=== PATIENT | male | born 1960 | race Caucasian/White ===

== ENCOUNTER 2019-11-18 09:38 | Inpatient (IN) | payer OTHER ==
[~2019-11-18] VITALS: Ht 177.8 cm; Wt 93.4 kg
--- NOTE | ~2019-11-18 | EKG ---
[place] [address] ELECTROCARDIOGRAM REPORT Name: MELISSA BRUNO Lauren Room: [facility]#: [id number] Admission: 11/18/19 Attend Phys: Discharge: Date of : 60 Date of Service: 11/18/19 0949 Report #: [id number] THIS REPORT FOR: cc: Es Frausto Linda J. 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
--- NOTE | ~2019-11-18 | EKG ---
[place] [address] ELECTROCARDIOGRAM REPORT Name: MELISSA BRUNO Room: [address] ADM IN .R.#: [id number] Admission: 11/18/19 Attend Phys: Bessy Allen, Discharge: Date of : 60 Date of Service: 11/19/19 1125 Report #: [id number] THIS REPORT FOR: cc: Es Frausto Linda J. 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 : 1960 Requested By: Melissa Zamudio Order Number: [id number] Reading MD: Measurements Intervals [place] Rate: 88 P: 6 NV: 145 QRS: 0 QRSD: 108 T: 68 QT: 406 QTc: 492 Interpretive Statements Sinus rhythm Atrial premature complex Probable left atrial enlargement Inferior infarct, old Abnormal lateral Q waves Anterior infarct, old Compared to ECG 11/18/2019 09:49:30 Atrial premature complex(es) now present Sinus tachycardia no longer present Myocardial infarct finding still present [email or web address] By: 1125 1125 Epiphany MD Oc /KELLIE
--- NOTE | ~2019-11-18 | EKG ---
[place] [address] ELECTROCARDIOGRAM REPORT Name: MELISSA BRUNO Room: [address] ADM IN .R.#: [id number] Admission: 11/18/19 Attend Phys: Bessy Allen, Discharge: Date of : 60 Date of Service: 11/20/19 0439 Report #: [id number] THIS REPORT FOR: cc: Es Frausto Linda J. 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
[2019-11-18 09:46] VITALS: BP 125/93; BP 131/101
[2019-11-18] MEDS ORDERED: ASA81BEC PO (09:53)
[2019-11-18] MEDS ORDERED: ADVIL LIQUI-GE200 MG PO (09:53)
[2019-11-18] MEDS ORDERED: MELATONIN3 M2 PO (09:53)
[2019-11-18 10:09] LABS: ABSOLUTE BASOPHILS 0.1 thou/uL (0.0-0.2); ABSOLUTE EOSINOPHILS 0.2 thou/uL (0.0-0.7); ABSOLUTE LYMPHOCYTES 2.6 thou/uL (0.8-5.3); ABSOLUTE NEUTROPHILS 6.4 thou/uL (1.6-8.1); BASOPHILS 0.7 %; EOSINOPHILS 1.6 %; HEMATOCRIT 48.1 % (42.0-52.0); HEMOGLOBIN 16.2 gm/dL (14.0-18.0); LYMPHOCYTES 25.2 %; MCH 30.1 pg (26.0-34.0); MCHC 33.7 g/dL (28.0-37.0); MCV 89.2 fL (80.0-100.0); MONOCYTES 9.4 %; MPV 8.5 fl. (7.2-11.1); NUCLEATED RBCS 0 /100WBC; PLATELET COUNT* 268 thou/uL (150-400); POLYS 63.1 %; RBC 5.39 mil/uL (4.50-6.00); RDW-CV 15.3 % (10.5-14.5); WBC 10.2 thou/uL (4.0-11.0)
[2019-11-18 10:23] LABS: APTT 23.9 Seconds (25.0-31.3); INR 1.2; PROTIME 12.6 Seconds (9.20-11.50)
[2019-11-18 10:24] LABS: CREATININE 1.1 mg/dL (0.6-1.3); POTASSIUM 4.6 mmol/L (3.5-5.1)
[2019-11-18 10:27] LABS: ALBUMIN 3.4 g/dL (3.4-5.0); TOTAL BILIRUBIN 0.8 mg/dL (<0.1-1.0); TOTAL PROTEIN 6.6 g/dL (6.4-8.2)
[2019-11-18 14:41] LABS: BE -4.9 mmol/L (-2 to +3); PCO2 28.6 mmHg (35.0-45.0); PO2 95.8 mmHg (75.0-100.0); pH 7.416 (7.340-7.450)
[2019-11-18 16:05] VITALS: BP 127/93
[2019-11-18 16:15] VITALS: BP 125/91
--- NOTE | 2019-11-18 16:35 | 2DMMODE ---
[place] [address] 2 D/M-MODE ECHOCARDIOGRAM Name: MELISSA BRUNO Room: [address] IN [facility]#: [id number] Admission: 11/18/19 Attend Phys: Bessy Allen, Discharge: Date of : 60 Date of Service: 11/18/19 1635 Report #: [id number] THIS REPORT FOR: cc: Es Frausto,Melissa Braden MD [facility] ~ THIS REPORT FOR: //name// APPROVED REPORT Study performed: 11/18/2019 15:19:27 EXAM: Comprehensive 2D, Doppler, and color-flow Echocardiogram Patient Location: In-Patient Room #: ER Status: routine BSA: 2.16 HR: 116 bpm BP: 122/90 mmHg Rhythm: NSR Other Information Study Quality: Good Indications Congestive Heart Failure 2D Dimensions IVSd: 10.40 (7-11mm) LVOT Diam: 23.07 (18-24mm) LVDd: 69.00 mm PWd: 10.20 (7-11mm) Ascending Ao: 39.04 (22-36mm) LVDs: 65.74 (25-40mm) Aortic Root: 39.05 mm Volumes Left Atrial Volume (Systole) LA ESV Index: 53.40 mL/m2 Aortic Valve AoV Peak Yoshi.: 1.00 m/s AO Peak Gr.: 3.98 mmHg LVOT Max P.49 mmHg AO Mean Gr.: 2.46 mmHg LVOT Mean P.94 mmHg LVOT Max V: 0.61 m/s AO V2 VTI: 13.63 cm LVOT Mean V: 0.47 m/[place] [address] 2 D/M-MODE ECHOCARDIOGRAM Name: MELISSA BRUNO Room: [address] IN [facility]#: [id number] Admission: 11/18/19 Attend Phys: Bessy Allen, Discharge: Date of : 60 Date of Service: 11/18/19 1635 Report #: [id number] BENITEZ (VTI): 2.56 cm2 LVOT V1 VTI: 8.35 cm TDI Medial E' Yoshi.: 0.08 m/s Lateral E' Yoshi.: 0.13 m/s Pulmonary Valve PV Peak Yoshi.: 0.64 m/s PV Peak Gr.: 1.64 mmHg Tricuspid Valve RAP Estimate: 5.00 mmHg TR Peak Gr.: 33.28 mmHg RVSP: 38.00 mmHg PA Pressure: 38.00 mmHg Left Ventricle Left ventricle is moderately dilated. There is global hypokinesis of the left ventricle. There is normal left ventricular wall thickness. Left ventricular systolic function is severely decreased. LVEF is 15-20%. Right Ventricle Right ventricle is dilated. The right ventricular systolic function is normal. Atria Left atrium is severely dilated. Right atrium is dilated. Aortic Valve The aortic valve is normal in structure. Trace aortic regurgitation. There is no aortic valvular stenosis. Mitral Valve The mitral valve is normal in structure. Moderate mitral regurgitation. No evidence of mitral valve stenosis. Tricuspid Valve The tricuspid valve is normal in structure. There is mild tricuspid valve regurgitation noted. estimated pa pressure 40 mm Hg Pulmonic Valve The pulmonary valve is normal in structure. Mild pulmonic regurgitation. Great Vessels The aortic root is normal in size. IVC is normal in size and collapses >50% [place] [address] 2 D/M-MODE ECHOCARDIOGRAM Name: MELISSA BRUNO Room: [address]#: [id number] Admission: 11/18/19 Attend Phys: Bessy Allen, Discharge: Date of : 60 Date of Service: 11/18/19 1635 Report #: [id number] Pericardium There is no pericardial effusion. <Conclusion> Left ventricle is moderately dilated. LVEF is 15-20%. Left atrium is severely dilated. Moderate mitral regurgitation. There is mild tricuspid valve regurgitation noted. estimated pa pressure 40 mm Hg <ELECTRONICALLY SIGNED> By: Melissa Zamudio MD, FACC 11/18/19 1635 1635 34 Melissa Zamudio MD, FACC /INF
[2019-11-18 20:15] VITALS: BP 118/82
[2019-11-18 23:43] LABS: INFLUENZA A ANTIGEN Negative (Negative); INFLUENZA B ANTIGEN Negative (Negative)
[2019-11-19] VITALS (11 sets, daily range): BP systolic 86–133; BP diastolic 66–82
[2019-11-19 07:10] LABS: GLYCOHEMOGLOBIN (HGB A1C) 6.1 % (4.8-5.6)
[2019-11-19 07:34] LABS: ANION GAP 12 mmol/L (7-16); BUN 20 mg/dL (7-18); CALCIUM 8.3 mg/dL (8.5-10.1); CHLORIDE 102 mmol/L (98-107); CHOLESTEROL 133 mg/dL (<200); CO2 21 mmol/L (21-32); GLUCOSE 138 mg/dL (70-99); HDL CHOLESTEROL 41 mg/dL (>40); LDL CHOLESTEROL 82 mg/dL (<100); POTASSIUM 4.1 mmol/L (3.5-5.1); SERUM ASSESSMENT Clear; SODIUM 135 mmol/L (136-145); TC:HDL 3.2 Ratio (Not establshd); TRIGLYCERIDE 53 mg/dL (<150); VLDL 11 mg/dL (<40)
--- NOTE | 2019-11-19 17:15 | CARD ---
[address] [address] CARDIAC CATH REPORT Name: MELISSA BRUNO Room: [address] IN [facility]#: [id number] Admission: 11/18/19 Attend Phys: Bessy Allen MD Discharge: Date of : 60 Report #: [id number] THIS REPORT FOR: //name// cc: Es Frausto Linda J. DO ~ THIS REPORT FOR: //name// APPROVED REPORT Study performed: 11/19/2019 08:56:27 Patient Details Patient Status: In-Patient Room #: 230 The patient is a 59 year-old male Event Personnel Melissa Zamudio In School Suspension Aide, Fozia Schroeder RN [employer] Specialist, Ashley Jones RTR Scrub, Zahra Jackson RTR Monitor Procedures Performed Art Access - R radial artery , Left Heart Cath w/or w/o Coronaries , ANNMARIE Place w/wo Plasty Single CIRC and attempted PTCA of the distal LAD Indication Abnormal ECG, Dyspnea, Cardiomyopathy Risk Factors Hypercholesterolemia Previous Procedures/Diagnoses Previous CO Admission/Lab Medications/Medications given during procedure Glycoprotein IllbIlla Inhibitors, Heparin Unfract., Oxygen Nasal cannula 2 l per min, Lidocaine Subcut 6 ml, Nitroglycerin IA 400 mcg, Verapamil IA 5 mg, Heparin IV bolus 9000 units, Aggrastat IV bolus 10 ml, Plavix PO 600 mg Procedure Narrative The patient was brought electively to the Cardiac Catheterization Laboratory and was prepped and draped in a sterile manner. The right wrist area was infiltrated with 2% [place] [address] CARDIAC CATH REPORT Name: MELISSA BRUNO Room: [address]#: [id number] Admission: 11/18/19 Attend Phys: Bessy Allen MD Discharge: Date of : 60 Report #: [id number] A 6F Slender Glidesheath sheath was inserted into the right radial artery. Coronary angiography was performed using coronary diagnostic catheters. The right coronary system was accessed and visualized with a 6F JR4 catheter. The left coronary system was accessed and visualized with a 6F JL4 catheter. The left ventricle was accessed and visualized with a 6F Pigtail catheter. Left ventricular/Aortic Valve gradient assessed via catheter pullback. Left ventriculogram was performed in [place] projection. Closure device was deployed with a 6 Fr Vasc-Band Reg 24cm. The patient tolerated the procedure well and there were no complications associated with the procedure. There was no hematoma. Intraoperative Conscious Sedation Sedation start time: 09:36 Case end Time: 10:43 Fentanyl 25 mcg Versed 2 mg Fluoro Time: 16.5 minutes Dose: DAP 224195 cGycm2 3249 mGy Contrast Type and Amount: Visipaque 315 ml Coronary Angiography The patient's coronary anatomy is right dominant. Diagnostic Cath Left Main 0% stenosis LAD 30% proximal stenosis. Distal LAD was occluded after the 3rd diagonal branch with faint filling by bridging collaterals Diagonal 2 small vessel with 90% ostial stenosis Circumflex 99% mid stenosis OM1 40% proximal stenosis Right Coronary 30% proximal stenosis R PDA 50% ostial stenosis RPLV 50% mid stenosis Left Ventriculography The left ventricular ejection fraction is estimated to be 15-20%. Left ventricular wall motion abnormalities are present. There is no mitral insufficiency. Akinesis noted of the distal anteroapical wall with filling defect in the apex suggesting an old thrombus. Severe hypokinesis noted of the inferior wall. Hemodynamics The aortic pressure is 83/60 mmHg with a mean of 70 mmHg. The left ventricular pressure is 90/19 mmHg with a mean of mmHg. The left ventricular end diastolic pressure is 35 mmHg. [place] [address] CARDIAC CATH REPORT Name: MELISSA BRUNO Room: [address]#: [id number] Admission: 11/18/19 Attend Phys: Bessy Allen MD Discharge: Date of : 60 Report #: [id number] across the aortic valve upon pullback. Pullback from the left ventricle to the aorta revealed no gradient across the aortic valve. PCI Technique Lesion Anticoagulation was achieved with Heparin. bolus of iv aggrastat given Percutaneous coronary intervention was performed on the mid circumflex artery segment. The lesion stenosis prior to intervention was 90% with MARIBELL 3 flow. A 6F XB LAD 3.5 Guide Catheter was used to engage the left main ostium. A BMW 190cm Interventional Guidewire was used to cross the lesion. BALLOON DILATION A Balloon catheter Trek RX 2.5 X 8 was inserted and inflated up to 12.00atm for 23seconds. Repeat angiography revealed the following post-dilatation results: 50% stenosis. Additional Inflation: 18.00atm for 50seconds. Additional Inflation: 18.00atm for 13seconds. STENT DEPLOYMENT A drug-eluting stent Russ RX Stent 3.5X22mm was inserted and inflated up to 11.00atm for 17seconds. Repeat angiography revealed the following post-stent deployment results: 0% stenosis. Additional Inflation: 11.00atm for 11seconds. Additional Inflation: 13.00atm for 16seconds. Final angiography reveals 0 % stenosis with MARIBELL 3 flow. PCI Technique Lesion 2 Percutaneous Coronary Intervention was performed on the distal left anterior descending artery segment. Percutaneous coronary intervention was performed on the distal left anterior descending artery segment. The lesion stenosis prior to intervention was 100% with MARIBELL 0 flow. A xblad3.5 Guide Catheter was used to engage the lm ostium. A bmw Interventional Guidewire was used to cross the lesion. Balloon Dilation Unable to cross stenosis with neither the BMW, prowater flex, nor the choice PT extra support guide wire suggesting that this represented a chronic occlusion. Final angiography reveals 100 % stenosis with MARIBELL 0 flow. Conclusion 1. 90% stenosis of the mid circumflex artery [facility] [address] [place] [address] CARDIAC CATH REPORT Name: MELISSA BRUNO Room: [address] IN M.R.#: [id number] Admission: 11/18/19 Attend Phys: Bessy Allen MD Discharge: Date of : 60 Report #: [id number] 2. chronic occlusion of the distal lad 3. successful placement of a drug eluting stent in the mid circumflex artery 4. LVEF less than 20% Recommendations consider ICD placement Medications Administered Clopidogrel <ELECTRONICALLY SIGNED> By: Melissa Zamudio MD, FACC 11/19/19 1713 12 1713Dgaby Zamudio MD, FACC /INF
[2019-11-20] VITALS: BP 122/78
[2019-11-20 04:00] VITALS: BP 115/77
[2019-11-20 04:39] LABS: HEMATOCRIT 42.1 % (42.0-52.0); MCH 29.4 pg (26.0-34.0); MCHC 33.5 g/dL (28.0-37.0); MCV 87.9 fL (80.0-100.0); MPV 8.8 fl. (7.2-11.1); RBC 4.79 mil/uL (4.50-6.00); RDW-CV 14.9 % (10.5-14.5); WBC 11.3 thou/uL (4.0-11.0)
[2019-11-20 04:47] LABS: HEMOGLOBIN 14.1 gm/dL (14.0-18.0)
[2019-11-20 05:02] LABS: CALCIUM 8.4 mg/dL (8.5-10.1); CREATININE 1.1 mg/dL (0.6-1.3); POTASSIUM 3.9 mmol/L (3.5-5.1)
[2019-11-20 05:05] LABS: TROPONIN-I LEVEL 5.36 ng/mL (<0.06)
[2019-11-20] MEDS ORDERED: LIPITOR 20 MG T20 M1 PO (09:23)
[2019-11-20] MEDS ORDERED: CARVEDILOL12.5 MG PO (09:25)
[2019-11-20] MEDS ORDERED: PLAVIX 75 MG TA75 MG PO (09:30)
[2019-11-20] MEDS ORDERED: LASIX 40 MG TAB40 MG PO (09:31)
[2019-11-20] MEDS ORDERED: SPIRONOLACTONE25 MG PO (09:34)
--- NOTE | 2019-11-20 14:04 | CON ---
[address] [address] CONSULTATION Name: YESSENIAGALENMELISSA Aguilar Room: [address] IN [facility]#: [id number] Admission: 11/18/19 Attend Phys: Bessy Allen MD Discharge: Date of : 60 Report #: [id number] THIS REPORT FOR: //name// cc: Es Frausto Linda J. DO THIS REPORT FOR: //name// CC: Bessy Payan DATE OF SERVICE: 11/18/2019 CARDIOLOGY CONSULTATION HISTORY OF PRESENT ILLNESS: The patient is a 59-year-old white male who I was asked to see in the Emergency Room today after he complained of being short of breath. The patient apparently had a previous myocardial infarction, but never required a stent. He was given medications in the past, but stopped taking them. Recently, he has been coughing and had lower extremity edema. He was given antibiotics. However, the shortness of breath worsened and so he came to the Emergency Room today to be admitted. He denies any chest pain, arm pain. He has been waking up at night short of breath. He notes occasional fast heartbeat, but no syncope. PAST MEDICAL HISTORY: He has had no surgical procedures. MEDICATIONS: His only medication includes aspirin 81 mg a day. ALLERGIES: He has no known drug allergies. FAMILY HISTORY: Negative for heart disease. SOCIAL HISTORY: He is . He and his live here in [place]. 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 No smoking. Rarely drinks alcohol. He does exercise on a regular basis. REVIEW OF SYSTEMS: No history of stroke, asthma, peptic ulcer disease, liver disease, kidney disease, cancer, psychiatric illness, or chronic skin condition. PHYSICAL EXAMINATION: GENERAL: Revealed a middle-aged male, who appeared in mild respiratory distress. VITAL SIGNS: He had a blood pressure of 120/80, pulse is 100. He is afebrile. HEENT: He was anicteric. Conjunctivae pink. Mucous membranes are moist. NECK: Veins nondistended. No carotid bruits. CHEST: Revealed crackles in both lung cuenca. CARDIOVASCULAR: Regular, tachycardia. No significant murmur. ABDOMEN: Soft. EXTREMITIES: Had no edema. SKIN: Warm and dry. NEUROLOGIC: Nonfocal. LYMPHATIC: No adenopathy. MUSCULOSKELETAL: No joint effusion. His workup in the Emergency Room, he had a portable chest x-ray that showed cardiomegaly, some atelectasis, small effusions. He actually had a CT scan of the chest using a PE protocol that showed no embolus, small effusions, mild edema, some atelectasis, coronary artery calcification. He had a CT scan of the abdomen and pelvis that showed small effusions, some ascites. His lab work today, sodium 138, potassium 4.6, and creatinine 1.1. Liver function studies were normal. Troponin is 0.16. BNP 5157. His white blood cell count 10.2, hemoglobin 16.2. His ECG showed a sinus rhythm, evidence of previous inferior infarction. IMPRESSION AND RECOMMENDATIONS: 1. Zzmuv-kj-mhdwdkw systolic heart failure. Recommend Lasix. 2. Recent cough. Possible bronchitis. 3. Previous myocardial infarction. Apparently requires no stents. <ELECTRONICALLY SIGNED> By: Melissa Zamudio MD, FACC 11/20/19 1404 1451 [id number] Zamudio MD, FACC /nt
== END 2019-11-20 13:30 | disposition home or self-care (01) | DRG 246 ==
LOC: M.ERS 09:38 → M.TBA-ER 11:07 → M.2W 11:07
PROVIDERS: Family Medicine; Internal Medicine Cardiovascular Disease; ADMIT Internal Medicine
DX: I21.4 Non-ST elevation (NSTEMI) myocardial infarction (principal); I50.23 Acute on chronic systolic (congestive) heart failure; J15.6 Pneumonia due to other Gram-negative bacteria; J96.00 Acute respiratory failure, unspecified whether with hypoxia or hypercapnia; R18.8 Other ascites; I42.9 Cardiomyopathy, unspecified; I11.0 Hypertensive heart disease with heart failure; I25.10 Atherosclerotic heart disease of native coronary artery without angina pectoris; E74.39 Other disorders of intestinal carbohydrate absorption; I25.5 Ischemic cardiomyopathy; I25.2 Old myocardial infarction; Z88.6 Allergy status to analgesic agent; Z88.8 Allergy status to other drugs, medicaments and biological substances

== ENCOUNTER → 2019-12-04 | Outpatient (CLI) | payer OTHER ==
[~2019-12-04] MED LIST: ADVIL LIQUI-GE200 MG PO; ASA81BEC PO; CARVEDILOL12.5 MG PO; LASIX 40 MG TAB40 MG PO; LIPITOR 20 MG T20 M1 PO; MELATONIN3 M2 PO; PLAVIX 75 MG TA75 MG PO; SPIRONOLACTONE25 MG PO
[2019-12-04 08:17] LABS: ALBUMIN 3.4 g/dL (3.4-5.0); CALCIUM 8.7 mg/dL (8.5-10.1); CREATININE 1.1 mg/dL (0.6-1.3); POTASSIUM 4.1 mmol/L (3.5-5.1); TOTAL BILIRUBIN 0.7 mg/dL (<0.1-1.0); TOTAL PROTEIN 6.8 g/dL (6.4-8.2)
== END ==
LOC: M.LAB 07:38
PROVIDERS: Registered Nurse
DX: I11.0 Hypertensive heart disease with heart failure (principal); I50.22 Chronic systolic (congestive) heart failure

== ENCOUNTER → 2019-12-19 | Outpatient (CLI) | payer OTHER ==
[2019-12-19 10:33] LABS: ANION GAP 7 mmol/L (7-16); BUN 13 mg/dL (7-18); CALCIUM 8.4 mg/dL (8.5-10.1); CHLORIDE 104 mmol/L (98-107); CHOLESTEROL 106 mg/dL (<200); CO2 27 mmol/L (21-32); GLUCOSE 106 mg/dL (70-99); HDL CHOLESTEROL 38 mg/dL (>40); LDL CHOLESTEROL 60 mg/dL (<100); NT-PRO BRAIN NAT PEPTIDE 2413 pg/mL (<300); POTASSIUM 4.4 mmol/L (3.5-5.1); SODIUM 138 mmol/L (136-145); TC:HDL 2.8 Ratio (Not establshd); TRIGLYCERIDE 43 mg/dL (<150); VLDL 9 mg/dL (<40)
[2019-12-19 10:38] LABS: SERUM ASSESSMENT Clear
[2019-12-20 02:07] LABS: GLYCOHEMOGLOBIN (HGB A1C) 6.4 % (4.8-5.6)
== END ==
LOC: M.LAB 09:44
PROVIDERS: Nurse Practitioner Family
DX: I11.0 Hypertensive heart disease with heart failure (principal); I50.22 Chronic systolic (congestive) heart failure; E78.2 Mixed hyperlipidemia

== ENCOUNTER → 2020-03-11 | Outpatient (CLI) | payer OTHER ==
[~2020-03-11] MED LIST changes: +KEFLEX500 M2 PO
== END ==
LOC: M.LAB 10:23
PROVIDERS: ATTEND Internal Medicine Cardiovascular Disease
DX: Z01.818 Encounter for other preprocedural examination (principal)

== ENCOUNTER → 2020-03-16 | Outpatient (CLI) | payer OTHER ==
[~2020-03-16] VITALS: Ht 177.8 cm; Wt 81.8 kg
[2020-03-16 09:54] VITALS: BP 113/74
[2020-03-16 09:59] LABS: HEMOGLOBIN 15.2 gm/dL (14.0-18.0); MCH 30.7 pg (26.0-34.0); MCHC 34.5 g/dL (28.0-37.0); MCV 88.9 fL (80.0-100.0); MPV 8.9 fl. (7.2-11.1); RBC 4.95 mil/uL (4.50-6.00); RDW-CV 15.6 % (10.5-14.5); WBC 7.3 thou/uL (4.0-11.0)
[2020-03-16 10:23] LABS: APTT 25.9 Seconds (25.0-31.3); CALCIUM 8.6 mg/dL (8.5-10.1); CREATININE 0.9 mg/dL (0.6-1.3); INR 1.2; PROTIME 11.8 Seconds (9.20-11.50)
[2020-03-16 10:27] LABS: ALBUMIN 3.9 g/dL (3.4-5.0); TOTAL BILIRUBIN 0.6 mg/dL (<0.1-1.0); TOTAL PROTEIN 7.3 g/dL (6.4-8.2)
[2020-03-16 12:16] VITALS: BP 104/76
[2020-03-16 12:32] VITALS: BP 103/72
--- NOTE | 2020-03-16 13:33 | EKG ---
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1960 Requested By: Gonzalo Modi Order Number: [id number] Reading MD: Melissa Zamudio Measurements Intervals [place] Rate: 66 P: 27 [place]: 177 QRS: -47 QRSD: 115 T: QT: 442 QTc: 464 Interpretive Statements Sinus rhythm Left atrial enlargement Nonspecific IVCD with LAD Inferior infarct, old Abnormal lateral Q waves Anterior infarct, old Compared to ECG 11/20/2019 04:39:26 Atrial abnormality now present Prolonged QT interval no longer present Myocardial infarct finding still present Electronically Signed On 03-16-2020 13:31:42 CDT by Melissa Zamudio [email or web address] <ELECTRONICALLY SIGNED> By: Melissa Zamudio MD, FAC 03/16/20 1331 1320 1320 Melissa Zamudio MD, FAC /EPI
--- NOTE | 2020-03-16 13:57 | CARD ---
[address] [address] CARDIAC CATH REPORT Name: MELISSA BRUNO Room: [facility]#: [id number] Admission: 03/16/20 Attend Phys: Gonzalo Modi MD Discharge: Date of : 60 Report #: [id number] THIS REPORT FOR: //name// cc: Teresa Hastings NP, Elizabeth NP ~ APPROVED REPORT Study performed: 03/16/2020 10:16:09 Patient Status: Out-Patient Room #: Event Personnel: Gonzalo Modi Seismograph Chief, Zahra Jackson RTR Scrub, Pacheco Manrique RN Transcripter, Jovanny Last ADVERTISING SALES ASSOCIATE Monitor Exam: Single Lead ICD Implant Indications: Primary prevention in the setting of ischemic cardiomyopathy. The patient is a 60 year-old male with a history of Ischemic cardiomyopathy with an ejection fraction of 15 to 20%. Patient Info Last EF%: 15 to 20% Date: February 2020 NYHA Heart Class: II Conscious Sedation Start time: 11:12 End Time: 11:54 Fentanyl 25 mcg Versed 1 mg 10.7 minutes fluoro, 744.82 DAP, 21.9 mGy. Implanted Devices: Medtronic ICDVR [id number] Primo MRI compatible, model number WFRX5N0, serial number [id number] single-chamber pulse generator. [employer] model number [id number], serial number [id number] pacing ICD lead. Procedure The patient underwent informed consent. We discussed the details of the procedure including the risks, which include, but not limited to bleeding, infection, vascular damage, cardiac perforation, and pneumothorax. He understood these risks and was willing to proceed. As such, he was brought to the EP/Cardiac Catheterization laboratory in a fasting and sedated state and prepped and draped in a sterile fashion, received IV antibiotics prior to initiation of the procedure and a venogram was performed showing patency of the left axillary vein. The patient underwent conscious sedation, [place] [address] CARDIAC CATH REPORT Name: MELISSA BRUNO Room: [facility]#: [id number] Admission: 03/16/20 Attend Phys: Gonzalo Modi MD Discharge: Date of : 60 Report #: [id number] complications. The patient was brought to the EP/Cardiac Catheterization laboratory and the left chest and shoulder were prepped and draped in a sterile manner. During this case, Fluoroscopy and left subclavian venogram were used for imaging. The left subclavian region was infiltrated with 2% Lidocaine with Epinephrine subcutaneous anesthesia. A transverse incision was made in the left upper chest cavity. The subcutaneous pocket was formed via blunt dissection. Percutaneous venous access was achieved and an introducer sheath was inserted into the left Subclavian vein. The ventricular lead was interrogated and The pacing ICD lead was then advanced to a secure position within the RV apex and actively fixed. Thresholds were checked and deemed to be satisfactory. Adequate sensing was assured. There was no diaphragmatic stimulation with maximum output pacing. The ventricular lead was secured using 0 silk suture. The subcutaneous pocket was irrigated with Ancef antibiotic solution. The ventricular lead was attached to the appropriate receptacle on the ICD generator and set screw firmly tightened to insure adequate contact and stability. The lead and ICD generator were placed into the subcutaneous pocket. The deep tissues were closed with interrupted stitches of 2-0 Vicryl. The skin incision was then closed with a single subcuticular stitch of 4-0 Vicryl. Several Steri-Strips were placed across the incision. A sterile Telfa dressing was then covered with a Tegaderm. Sharp and sponge counts were confirmed to be correct. Electrode Parameters R Wave: 8.0 mV Ventricular Threshold: 0.6 V at 0.50 ms Ventricular Resistance: 539 ohms Complications The patient tolerated the procedure well and there were no complications associated with the procedure. Conclusion 1. Ischemic cardiomyopathy with ejection fraction of 15 to 20%. 2. Single-chamber pacing ICD placed for primary prevention without [place] [address] CARDIAC CATH REPORT Name: MELISSA BRUNO Room: [facility]#: [id number] Admission: 03/16/20 Attend Phys: Gonzalo Modi MD Discharge: Date of : 60 Report #: [id number] 1. Follow-up site check in 1 week. 2. Follow-up ICD interrogation in the office in 1 to 2 months. <ELECTRONICALLY SIGNED> By: Gonzalo Modi MD, FACC 03/16/20 1354 1354 [id number] Modi MD, FACC /INF
== END | disposition home or self-care (01) ==
LOC: M.CL 09:31
PROVIDERS: Internal Medicine Cardiovascular Disease
DX: I25.5 Ischemic cardiomyopathy (principal); R94.31 Abnormal electrocardiogram [ECG] [EKG]; I50.20 Unspecified systolic (congestive) heart failure; I25.2 Old myocardial infarction; Z98.890 Other specified postprocedural states; Z79.899 Other long term (current) drug therapy

== ENCOUNTER → 2020-06-04 | Outpatient (CLI) | payer OTHER ==
--- NOTE | 2020-06-04 17:47 | CARDNUC ---
[place] [address] CARDIAC NUCLEAR IMAGING REPORT Name: MELISSA BRUNO Room: [facility]#: [id number] Admission: 06/04/20 Attend Phys: Melissa Zamudio MD Discharge: Date of : 60 Date of Service: 06/04/20 1746 Report #: [id number] THIS REPORT FOR: cc: Teresa Hastings NP, Elizabeth NP Liston, Michael J. MD [facility] ~ APPROVED REPORT Imaging Protocol: Stress Tc-99m/Rest Tc-99m 1 day Study performed: 06/04/2020 09:30:00 Indication: Abnormal EKG, Chest pain Patient Location: Out-Patient Stress Tech: Zeinab Starks Stress Nurse: Iesha Davis RN Ht: 5 ft 10 in Wt: 185 lbs BSA: 2.02 m2 BMI: 26.54 Medical History Medical History: Arrhythmia, CHF, Hyperlipidemia, ICD, Heart failure Medications: asa 81, carvedilol, clopidogrel, furosemide, ntg, aldactone Allergies: No known drug allergies Cardiac Risk Factors: Age, Hyperlipidemia Previous Cardiac Procedures: PCI, ICD, Myocardial infarction Exercise History: Indeterminate Meds Held (24 hrs): carvedilol Resting Data Rest SPECT myocardial perfusion imaging was performed in supine position 30 minutes following the intravenous injection of 10.4 mCi of Tc-99m Sestamibi. Time of rest injection: 10:10 The images were gated to evaluate regional wall motion and calculate left ventricular ejection fraction. Administration Route: IV Administration Site: Right Hand Pharmacologic Stress Pharmacologic stress test was performed by injecting Regadenoson 0.4 mg IV push over 10-15 seconds immediately followed by the intravenous injection of 30.9 mCi of Tc-99[place] [address] CARDIAC NUCLEAR IMAGING REPORT Name: MELISSA BRUNO Room: [facility] [place]#: [id number] Admission: 06/04/20 Attend Phys: Melissa Zamudio MD Discharge: Date of : 60 Date of Service: 06/04/20 1746 Report #: [id number] Time of stress injection: 12:20 Administration Route: IV Administration Site: Right Hand Heart Rate at time of stress injection: 87 bpm. Gated Stress SPECT was performed 45 minutes after stress injection. The images were gated to evaluate regional wall motion and calculate left ventricular ejection fraction. Prone imaging was performed. Stress Test Details Stress Test: Pharmacologic stress testing performed using 0.4 mg of regadenoson per 5 mL given IV over 10 seconds. Reason for pharmacologic stress test: PPM. HR Max Heart Rate (APMHR): 160 bpm Resting HR: 76 bpm Target HR (85% APMHR): 136 bpm Max HR Achieved: 87 bpm % of APMHR: 54 Recovery HR: 79 bpm BP Resting BP: 117/82 mmHg Max BP: 105/61 mmHg Recovery BP: 107/77 mmHg ECG Resting ECG: Sinus Rhythm Stress ECG: Sinus Rhythm ST Change: None Arrhythmia: None Recovery ECG: Sinus Rhythm Recovery ST Change: None Recovery Arrhythmia: None Clinical Reason for Termination: Completed protocol The patient tolerated Lexiscan infusion without significant cardiac symptoms. Stress ECG Conclusion The baseline twelve-lead EKG shows sinus rhythm without significant ST segment or T wave abnormality. EKGs obtained during and post exercise shows sinus rhythm with no significant ST segment changes when compared to baseline. There were [place] [address] CARDIAC NUCLEAR IMAGING REPORT Name: MELISSA BRUNO Room: [facility]#: [id number] Admission: 06/04/20 Attend Phys: Melissa Zamudio MD Discharge: Date of : 60 Date of Service: 06/04/20 1746 Report #: [id number] Study Quality Study: Good Artifact: No artifact Study Data At rest, the left ventricular ejection fraction was 22%.. Post stress, the left ventricular ejection was 21%.. TID = 0.98. Perfusion Perfusion defects show extensive/large defects of severe intensity involving the entire apex and the basal to distal inferior and inferolateral wall all that appear fixed. No reversible defects are identified. Wall Motion There is severe global hypokinesis with akinesis of the entire apex and mid to distal lateral wall. Nuclear Conclusion ECG Findings: negative for ischemia Clinical Findings: negative for ischemia Nuclear Findings: negative for ischemia Exercise Capacity: not assessed Left Ventricular Function: abnormal Risk Study: high Perfusion study show extensive fixed defects consistent with prior infarcts. Global LV systolic function is severely decreased with wall motion abnormalities as outlined above. This is consistent with an ischemic cardiomyopathy. This is a high risk study based on severe LV systolic dysfunction. <Conclusion> The baseline twelve-lead EKG shows sinus rhythm without significant ST segment or T wave abnormality. EKGs obtained during and post exercise shows sinus rhythm with no significant ST segment changes when compared to baseline. There were no stress-induced arrhythmias. <ELECTRONICALLY SIGNED> By: Gonzalo Modi MD, FACC 06/04/20 1746 1746 1746 Gonzalo Modi MD, FACC /INF
== END ==
LOC: M.NUC 05-25 14:52
PROVIDERS: ATTEND Internal Medicine Cardiovascular Disease
DX: R07.9 Chest pain, unspecified (principal)

== ENCOUNTER → 2021-02-22 | Outpatient (CLI) | payer OTHER ==
[2021-02-22 09:38] LABS: ALBUMIN 4.1 g/dL (3.4-5.0); ALKALINE PHOSPHATASE 62 U/L (46-116); CHOLESTEROL 228 mg/dL (<200); DIRECT BILIRUBIN 0.1 mg/dL (<0.1-0.3); HDL CHOLESTEROL 53 mg/dL (>40); LDL CHOLESTEROL 155 mg/dL (<100); SGOT 17 U/L (15-37); SGPT 27 U/L (30-65); TC:HDL 4.3 Ratio (Not establshd); TOTAL BILIRUBIN 0.6 mg/dL (<0.1-1.0); TOTAL PROTEIN 7.9 g/dL (6.4-8.2); TRIGLYCERIDE 100 mg/dL (<150); VLDL 20 mg/dL (<40)
[2021-02-22 09:53] LABS: SERUM ASSESSMENT Clear
== END ==
LOC: M.LAB 09:11
PROVIDERS: ATTEND Registered Nurse
DX: E78.5 Hyperlipidemia, unspecified (principal)

== ENCOUNTER → 2021-08-05 | Outpatient (CLI) | payer OTHER ==
[2021-08-05 09:32] LABS: CHOLESTEROL 182 mg/dL (<200); HDL CHOLESTEROL 52 mg/dL (>40); LDL CHOLESTEROL 116 mg/dL (<100); TC:HDL 3.5 Ratio (Not establshd); TRIGLYCERIDE 72 mg/dL (<150); VLDL 14 mg/dL (<40)
[2021-08-05 09:35] LABS: SERUM ASSESSMENT Clear
== END ==
LOC: M.LAB 08:54
PROVIDERS: ATTEND Internal Medicine Cardiovascular Disease
DX: I25.10 Atherosclerotic heart disease of native coronary artery without angina pectoris (principal); E78.5 Hyperlipidemia, unspecified